=== PATIENT | male | born 1980 | race Hispanic/Latino ===

== ENCOUNTER 2018-08-24 10:26 | Emergency (ER) | payer OTHER ==
[~2018-08-24] VITALS: Ht 175.3 cm; Wt 127.0 kg
--- OUTSIDE RECORDS SUMMARY | 2018-08-24 10:29 | XMS REPORT ---
Author Author Juan Hurt Organization [employer] Address Unknown Phone Unavailable Care Team Providers Care Senior Enlisted Advisor Name Role Phone Juan Hurt CP Unavailable Allergies, Adverse Reactions, Alerts Substance Reaction Event Type Aspirin Info Not Available Drug Allergy Encounters Encounter Location Date Knee Pain [facility] February 26, 2014 [facility] Sep 07, 2014 Problems Problem Type Condition ICD-9 Code Onset Dates Condition Status Assessment Obesity, unspecified 278.00 Active Assessment Bronchitis, Acute 466.19 Active Social History Social History Element Qualifiers Date Reported Tobacco Use: . Are you a: former smoker, When did you quit? PT QUIT 10/2013Sep 07, 2014 Caffeine: . 1 CUP COFFEE/ DAY Sep 07, 2014 Do you drink? . NONE Sep 07, 2014 Vital Signs Date/Time: Sep 07, 2014 Weight 256 lbs Height 71 in Blood Pressure Diastolic 82 mm Hg Blood Pressure Systolic 110 mm Hg Summary Purpose [employer] Submission
--- OUTSIDE RECORDS SUMMARY | 2018-08-24 10:29 | XMS REPORT ---
Author Author Juan Hurt Organization [employer] Address Unknown Phone Unavailable Care Team Providers Care Brake Liner Name Role Phone Juan Hurt CP Unavailable Allergies No Known Allergies Problems Problem Type Condition Code Onset Dates Condition Status Problem Gastritis K29.70 Active Medications No Known Medications Results No Known Results Summary Purpose [employer] Submission
--- OUTSIDE RECORDS SUMMARY | 2018-08-24 10:29 | XMS REPORT ---
Author Author Juan Hurt Organization [employer] Address Unknown Phone Unavailable Care Team Providers Care Confectionery Laboratory Manager Name Role Phone Juan Hurt CP Unavailable Allergies, Adverse Reactions, Alerts Substance Reaction Event Type Aspirin Info Not Available Drug Allergy Encounters Encounter Location Date Knee Pain [facility] February 26, 2014 Problems Problem Type Condition ICD-9 Code Onset Dates Condition Status Assessment DJD - Osteoarthrosis, unspecified whether generalized or localized, unspecified site 715.90 Active Assessment Obesity, unspecified 278.00 Active Assessment Knee Sprain and Strain 844.9 Active Assessment BP Elevated blood pressure reading without diagnosis of hypertension 796.2 Active Medications Medication Code System Code Instructions Start Date End Date Status Dosage Medrol (Samuel) MEDISPAN [address]-40 4 MG Orally DIRECTED February 26, 2014 March 04, 2014 Active as directed Social History Social History Element Qualifiers Date Reported Tobacco Use: . Are you a: former smoker, When did you quit? PT QUIT 10/2013February 26, 2014 Caffeine: . 1 CUP COFFEE/ DAY February 26, 2014 Do you drink? . NONE February 26, 2014 Vital Signs Date/Time: February 26, 2014 Weight 280 lbs Height 71 in Cardiac Monitoring Heart Rate 84 /min Blood Pressure Diastolic 90 mm Hg Blood Pressure Systolic 126 mm Hg Summary Purpose [employer] Submission
--- OUTSIDE RECORDS SUMMARY | 2018-08-24 10:29 | XMS REPORT | Continuity of Care Document ---
Author Author [facility] Interface Address Unknown Phone Unavailable Problems Problem Status Onset Date Classification Date Reported Comments Source Gastritis Active Problem 10/22/2017 [facility] Obesity, unspecified Active Diagnosis 10/05/2014 [facility] Bronchitis, Acute Active Diagnosis 10/05/2014 [facility] DJD - Osteoarthrosis, unspecified whether generalized or localized, unspecified site Active Diagnosis 07/25/2014 [facility] Knee Sprain and Strain Active Diagnosis 07/25/2014 [facility] BP Elevated blood pressure reading without diagnosis of hypertension Active Diagnosis 07/25/2014 [facility] Medications Medication Details Route Status Patient Instructions Ordering Provider Order Date Source Medrol (Samuel) as directed Orally Active 4 MG Orally DIRECTED Licha 02/26/2014 [facility] Allergies, Adverse Reactions, Alerts Substance Category Reaction Severity Reaction type Status Date Reported Comments Source Aspirin Adverse Reaction Info Not Available Adverse Reaction Active 09/07/2014 [facility] Immunizations Immunization Date Given Site Status Last Updated Comments Source Results Order Name Results Value Reference Range Date Interpretation Comments Source Vital Signs Vital Sign Value Date Comments Source Weight 256 09/07/2014 [facility] Height 71 09/07/2014 [facility] Diastolic (mm Hg) 82 09/07/2014 [facility] Systolic (mm Hg) 110 09/07/2014 [facility] Weight 280 02/26/2014 [facility] Height 71 02/26/2014 [facility] Heart Rate 84 02/26/2014 [facility] Diastolic (mm Hg) 90 02/26/2014 [facility] Systolic (mm Hg) 126 02/26/2014 [facility] Encounters Location Location Details Encounter Type Encounter Number Reason For Visit Attending Provider ADM Date DC Date Status Source [facility] Knee Pain [id number] 02/26/2014 02/26/2014 [facility] Knee Pain [id number] 02/26/2014 02/26/2014 [place] [facility] cold [id number] 09/07/2014 09/07/2014 [facility] Procedures Procedure Code Date Perfomer Comments Source
[2018-08-24] MEDS ORDERED: KETOROLAC TROMETHAMINE 60 MG/2 ML VIAL IM ONE (11:15)
[2018-08-24] MEDS ORDERED: CYCLOBENZAPRINE HCL 10 MG TAB PO ONE (11:15)
== END 2018-08-24 11:41 | disposition home or self-care (01) ==
LOC: FSED 10:26
DX: M54.5 Low back pain (principal); S33.5XXA Sprain of ligaments of lumbar spine, initial encounter; V43.52XA Car driver injured in collision with other type car in traffic accident, initial encounter; Y92.488 Other paved roadways as the place of occurrence of the external cause
CPT/HCPCS: 99283; J1885